=== PATIENT | female | born 1960 | race Caucasian/White ===

== ENCOUNTER → 2018-10-20 09:41 | Outpatient (CLI) | payer OTHER ==
[~2018-10-20 09:41] MED LIST: COZAAR100 MG; HUMULIN 70100 UNIT/2; LANTUS SOL100 UNIT/1; LASIX40 MG; LEVSIN/SL0.125 MG SL
== END | disposition home or self-care (01) ==
LOC: LAB 09:41
DX: L02.818 Cutaneous abscess of other sites (principal)